=== PATIENT | female | born 1940 | race Caucasian/White ===

== ENCOUNTER → 2016-08-10 | Outpatient (CLI) | payer MEDICARE, OTHER ==
[2015-02-21 21:20] VITALS: BP 147/66
[~2016-08-10] MED LIST: ARFO15VI IH; ATOR20TA PO; CHOL500016 PO; ESTRADIOL PO; LEVO75TA PO; METF500T9 PO; VALS40TA2 PO; VIT1CAPS17 PO
--- NOTE | 2016-08-10 13:54 | RAD ---
EXAM: Chest CT without intravenous contrast. HISTORY: Pneumonia follow-up. TECHNIQUE: Computed tomographic images of the chest were obtained without contrast. Multiplanar reformatting was performed. COMPARISON: 07/30/2015. FINDINGS: There is mild emphysema. There is no effusion or pneumothorax. There are a few calcified granulomas. There has been interval increase in a nodular opacity with surrounding groundglass within the left upper lobe, measuring 1.8 cm compared to a prior measurement of 1.3 cm. There is aortic and coronary artery atherosclerosis. No pathologically enlarged lymph node is seen. There is a 1.5 cm hypodense lesion within the upper pole the right kidney, the attenuation of which favors a cyst. There is also a 4.4 cm cyst within the lower pole of the right kidney. There are chronic moderate compression fractures of T6 and T7 and there is a chronic mild compression fracture of T5. There are chronic are noted fractures of the posterior left seventh and eighth ribs and there is a healed fracture of the posterior left sixth rib. IMPRESSION: 1. Nodular opacity with surrounding groundglass within the left upper lobe measuring 1.8 cm, increased compared to the prior study. This may be post infectious or neoplastic. This may not be within limits in size for assessment with PET/CT. Short-term imaging follow-up is indicated. 2. Emphysema. 3. Right renal cysts. 4. Multiple chronic thoracic compression fractures and left rib fractures. PQRS Compliance Statement: One or more of the following individualized dose reduction techniques were utilized for this examination: 1. Automated exposure control 2. Adjustment of the mA and/or kV according to patient size 3. Use of iterative reconstruction technique
== END | disposition home or self-care (01) ==
LOC: CT 13:01
PROVIDERS: ATTEND Family Medicine
DX: M48.54XA Collapsed vertebra, not elsewhere classified, thoracic region, initial encounter for fracture (principal); N28.1 Cyst of kidney, acquired; J43.9 Emphysema, unspecified; J18.9 Pneumonia, unspecified organism; I25.10 Atherosclerotic heart disease of native coronary artery without angina pectoris; R06.2 Wheezing; R93.8 Abnormal findings on diagnostic imaging of other specified body structures; X58.XXXA Exposure to other specified factors, initial encounter; Y93.89 Activity, other specified; Y92.89 Other specified places as the place of occurrence of the external cause; Y99.8 Other external cause status
CPT/HCPCS: 71250

== ENCOUNTER 2016-11-19 08:36 | Emergency (ER) | payer MEDICARE, OTHER ==
[~2016-11-19] VITALS: Ht 157.5 cm; Wt 83.0 kg
--- NOTE | 2016-11-19 09:29 | RAD ---
Indication fall yesterday. Pain. AP oblique and lateral views of the right foot were obtained. No fracture is seen. No acute or significant bony abnormality is apparent
--- NOTE | 2016-11-19 09:53 | PHYS DOC ---
General Chief Complaint: MECHANICAL FALL Stated Complaint: FALL Time Seen by MD: 08:43 Source: patient Exam Limitations: no limitations Problems: History of Present Illness Initial Comments Patient is a 76-year-old female who comes to the ED complaining of injuries from a fall. Patient states that last night she was watering her plants standing up on a chair. She says she lost her balance and fell down to the right landing primarily on her right foot. She says she did hit her head lightly on the wall but had no headache no loss of consciousness no neck pain and has had no symptoms since she does not take blood thinners. She also says she twisted her back but says she didn't hit anything her symptoms are mild and she refuses evaluation for that. What she has come for is her right heel, she says she has severe pain with weightbearing. She denies any left foot or heel pain prior to this fall she denies numbness tingling weakness or radiating symptoms. No pre- arrival treatment she is ambulatory but with discomfort. Onset: yesterday Severity: moderate Pain/Injury Location: left heel Method of Injury: fell Modifying Factors: worse with jarring, worse with movement, improves with rest Allergies: Coded Allergies: codeine (Unverified Allergy, Unknown, Nausea and Vomiting, 02/21/15) Past Medical History Medical History: other (COPD, DM, HLP, HTN, hypothyroid) Surgical History: noncontributory, other Social History Smoker: quit greater than 1 year Alcohol: none Drugs: none Review of Systems Constitutional: denies chills, denies fever, denies malaise Respiratory: denies cough, denies shortness of breath Cardiovascular: denies chest pain, denies palpitations Gastrointestinal: denies diarrhea, denies nausea, denies vomiting Musculoskeletal: see HPI Skin: see HPI Psychiatric/Neurological: see HPI Physical Exam General Appearance: WD/WN, no apparent distress Neck: non-tender, supple Cardiovascular/Respiratory: normal peripheral pulses, no respiratory distress Back: no CVA tenderness, no vertebral tenderness Feet: left foot non-tender, left foot normal inspection, bilateral foot normal range of motion, bilateral foot no evidence of injury, right foot pain, right foot soft tissue tenderness, right foot other (tenderness to palpation at the calcaneus and the origin of the plantar fascia. There is no swelling or ecchymosis no bony tenderness no palpable deformity. Extremities are neurovascularly intact bilaterally.) Neurologic/Tendon: normal sensation, normal motor functions, normal tendon functions, responds to pain, no evidence tendon injury Psychiatric: alert, oriented x 3 Skin: normal color, warm/dry Orders, Labs, Meds Right foot: No acute osseous abnormality images interpreted by me. I discussed her symptoms and therefore correlation with plantar fasciitis. She did state that she's had no issues with the right foot prior to this fall. I discussed a prolonged treatment plan as these injuries tend to be nagging and difficult to resolve. Patient expressed agreement and understanding of the treatment plan. Departure Time of Disposition: 09:50 Disposition: 01 HOME, SELF-CARE Diagnosis: right heel bruise, plantar fasciitis, fall Condition: GOOD Patient Instructions: Foot Contusion, Plantar Fasciitis, RICE - Routine Care for Injuries, [id number] Additional Instructions: JAIME, see handout. Wear post-op shoe as needed for symptom control. Frozen water bottle "ice massage" every 3 hours as discussed. OTC tylenol or ibuprofen as needed. Use your crutches or a walker if available as needed for assistive device. Follow up with your doctor in one week for recheck. Return to ED with new or changing symptoms. ALFREDO MALHOTRA DO Nov 19, 2016 09:53
[2016-11-19 10:05] VITALS: BP 136/63
== END 2016-11-19 10:05 | disposition home or self-care (01) ==
LOC: ER 08:36
DX: S90.31XA Contusion of right foot, initial encounter (principal); M72.2 Plantar fascial fibromatosis; E03.9 Hypothyroidism, unspecified; E11.9 Type 2 diabetes mellitus without complications; E78.5 Hyperlipidemia, unspecified; I10 Essential (primary) hypertension; J44.9 Chronic obstructive pulmonary disease, unspecified; Z87.891 Personal history of nicotine dependence; Z88.5 Allergy status to narcotic agent; W07.XXXA Fall from chair, initial encounter; Y93.19 Activity, other involving water and watercraft; Y99.8 Other external cause status; Y92.89 Other specified places as the place of occurrence of the external cause
CPT/HCPCS: 73630; 99284

== ENCOUNTER → 2017-10-06 | Outpatient (CLI) | payer MEDICARE, OTHER ==
--- NOTE | 2017-10-06 14:36 | RAD ---
History: Postmenopausal osteoporosis screening, white female. Comparison: December 03, 2014. Findings: Bone Densitometry was performed with dual photon absorption of the lumbar spine and proximal right femur. Lumbar Spine: Bone density is 1.118 g/cm2 for L1-L4. T-Score is -0.5. Z-score is 1.4. Dextroconvex scoliosis of lumbar spine is seen. Bone mineral density of the lumbar spine demonstrates 2.8% increase from previous study. Total proximal right femur: Bone density is 0.731 g/cm2. T-Score is -2.2. Z-score is -0.2. Bone mineral density of the proximal right femur demonstrates 0.6% increase from previous study. Right femoral neck: Bone density is 0.804 g/cm2. T-Score is -1.7. Z-score is 0.4. IMPRESSION: 1. Bone mineral density of lumbar spine appears within normal limits. 2. Osteopenia of the proximal right femur. World Health definition of osteoporosis and osteopenia: Normal = T-Score at or above -1.0; osteopenia = T-score between -1.0 and -2.5; osteoporosis = T-score at or below -2.5 Electronically signed by: Min Head MD (10/06/2017 2:33 PM) [facility]
== END | disposition home or self-care (01) ==
LOC: DXRAD 13:47
PROVIDERS: ATTEND Nurse Practitioner Family
DX: Z13.820 Encounter for screening for osteoporosis (principal); E11.9 Type 2 diabetes mellitus without complications; M81.0 Age-related osteoporosis without current pathological fracture
CPT/HCPCS: 77080